=== PATIENT | female | born 1985 | race Caucasian/White ===

== ENCOUNTER 2016-07-05 15:24 | Emergency (ER) | payer OTHER ==
[2016-07-05 15:38] VITALS: BP 126/71; PULSE 98; TEMP 98; BMI 40.3
[2016-07-05 17:27] LABS: URINE APPEARANCE CLEAR; URINE BILIRUBIN NEGATIVE (NEGATIVE); URINE BLOOD NEGATIVE (NEGATIVE); URINE COLOR LTYELLOW; URINE GLUCOSE (UA) NEGATIVE (NEGATIVE); URINE KETONE NEGATIVE (NEGATIVE); URINE LEUK ESTERASE NEGATIVE (NEGATIVE); URINE NITRITE NEGATIVE (NEGATIVE); URINE PROTEIN NEGATIVE (NEGATIVE); URINE UROBILINOGEN NEGATIVE E.U./dl (0.2-1.0)
--- NOTE | 2016-07-05 17:48 | PDOC ---
History of Present Illness - General Chief Complaint: Pain Stated Complaint: VOMITING, BODY ACHES Time Seen by Provider: 07/05/16 16:53 History Source: Patient, Cluster Bore Operator Used ([id number]) Exam Limitations: Language Barrier - History of Present Illness Travel History: No Initial Comments: 07/05/16 17:46 31 yr female with no medical history c/o body aches for 3 days with chills, nausea. Pt denies fever or sick contacts. Pt requesting test LMP 05/28/17 no vaginal bleeding or pain Past History - Past Medical History Allergies/Adverse Reactions: Allergies Allergy/AdvReac Type Severity Reaction Status Date / Time No Known Allergies Allergy Verified 07/05/16 15:39 Home Medications: Ambulatory Orders NK [No Known Home Medication] 07/05/16 - Surgical History Other Surgical History: 07/05/16 17:47 none - Family Disease History Comment:: 07/05/16 17:47 none relevant - Immunization History Immunization Up to Date: Yes - Psycho/Social/Smoking Cessation Hx Suicidal Ideation: No Smoking History: Never smoked Information on smoking cessation initiated: No Abd/GI Specific PMHX - Complaint Specific PMHX Colitis: No Diverticulitis: No Gall Bladder Disease: No Review of Systems - Review of Systems Able to Perform ROS?: Yes Is the patient limited Green[place]ic proficient: No Constitutional: Yes: Symptoms Reported HEENTM: No: Symptoms Reported Respiratory: No: Symptoms reported Cardiac (ROS): No: Symptoms Reported ABD/GI: Yes: Nausea *Physical Exam - Vital Signs Last Vital Signs Temp Pulse Resp BP Pulse Ox 98 F 98 H 18 126/71 100 07/05/16 15:35 07/05/16 15:35 07/05/16 15:35 07/05/16 15:35 07/05/16 15:35 - Physical Exam General Appearance: Yes: Nourished, Appropriately Dressed HEENT: positive: EOMI, DAMI, Normal ENT Inspection, TMs Normal, Pharynx Normal Neck: positive: Supple. negative: Tender Respiratory/Chest: positive: Lungs Clear, Normal Breath Sounds. negative: Chest Tender Cardiovascular: positive: Regular Rhythm, Regular Rate Gastrointestinal/Abdominal: positive: Normal Bowel Sounds, Soft Musculoskeletal: positive: Normal Inspection Extremity: positive: Normal Capillary Refill, Normal Inspection, Normal Range of Motion Integumentary: positive: Normal Color, Dry, Warm Neurologic: positive: Fully Oriented, Alert, Normal Mood/Affect, Normal Response , Motor Strength 10/19 Medical Decision Making - Medical Decision Making 07/05/16 18:18 cc: body aches , nausea , missed LMP here for test no fever no diarrhea or abd pain or vaginal bleeding pt denies urinary complaints will check for flu , UTI *DC/Admit/Observation/Transfer Diagnosis at time of Disposition: Qualifiers: Weeks of gestation: unspecified Qualified Code(s): Z33.1 - state, incidental - Discharge Dispostion Disposition: HOME Condition at time of disposition: Good - Referrals Referrals: Anisha Kohli [Primary Care Provider] - Thomas Mrate MD [Staff Physician] - - Patient Instructions Additional Instructions: drink pleanty of fluids follow with your doctor next week eat dry crackers, dry toast bland food as tolerated take tylenol 650mg every 4-6hrs for fever or pain
[2016-07-05] MEDS ORDERED: ACETAMINOPHEN 325 MG TABLET (FP) PO ONE (18:18)
== END 2016-07-05 18:46 | disposition home or self-care (01) ==
LOC: JERFT 15:24
DX: Z32.01 Encounter for pregnancy test, result positive (principal); Z3A.12 12 weeks gestation of pregnancy
CPT/HCPCS: 81003; 84703; 87804; 99281-25